=== PATIENT | female | born 1965 | race Caucasian/White ===

== ENCOUNTER 2016-06-13 14:37 | Emergency (ER) | payer BC, OTHER ==
[~2016-06-13] VITALS: Ht 162.6 cm; Wt 49.0 kg
[2016-06-13] MEDS ORDERED: ONDANSETRON HCL/PF 4 MG/2 ML VIAL ONE (14:54)
[2016-06-13] MEDS ORDERED: MORPHINE SULFATE INJ 4 MG/ML DISP.SYRIN ONE (14:54)
[2016-06-13] MEDS ORDERED: ONDANSETRON HCL/PF 4 MG/2 ML VIAL IVP ONE (15:00)
[2016-06-13] MEDS ORDERED: MORPHINE SULFATE INJ 4 MG/ML DISP.SYRIN IV ONE (15:00)
[2016-06-13 15:11] LABS: BASOPHILS # (AUTO) 0.1 /CMM (0.0-0.2); BASOPHILS % (AUTO) 1.5 % (0.0-2.0); EOSINOPHILS # (AUTO) 0.1 /CMM (0.0-0.7); EOSINOPHILS % (AUTO) 1.2 % (0.0-6.0); HEMATOCRIT 39 % (33-45); HEMOGLOBIN 13.1 g/dL (11.5-14.8); LYMPHOCYTES # (AUTO) 2.4 /CMM (0.8-4.8); LYMPHOCYTES % (AUTO) 51.9 % (20.0-44.0); MEAN CORPUSCULAR HEMOGLOBIN 32 PG (26.0-33.0); MEAN CORPUSCULAR HGB CONC 34 g/dl (31.0-36.0); MEAN CORPUSCULAR VOLUME 96 fL (82-100); MONOCYTES # (AUTO) 0.4 /CMM (0.1-1.30); MONOCYTES % (AUTO) 8.4 % (2.0-12.0); NEUTROPHILS # (AUTO) 1.7 /CMM (1.8-8.9); PLATELET COUNT (AUTO) 336 /CMM (150-450); RDW COEFFICIENT OF VARIATION 11.9 (11.5-15.0); RED BLOOD CELL COUNT(AUTO) 4.07 MIL/uL (4.0-5.2); WHITE BLOOD COUNT (AUTO) 4.7 K/uL (4.3-11.0)
[2016-06-13 15:21] LABS: CALCIUM, SERUM 9.1 mg/dL (8.5-10.1); CREATININE 0.7 mg/dL (0.6-1.3); POTASSIUM 4.6 mmol/L (3.5-5.1)
[2016-06-13 15:23] LABS: INR 0.94 (0.87-1.13); PROTHROMBIN TIME 9.8 SECS (9.5-12.7)
--- NOTE | 2016-06-13 15:27 | NUR ---
PT REC'D TO ER C/O ETOH ABUSE DRANK ONE BOTTLE OF WINE TODAY DEPRESSION VSS IV STARTED 20G RT FA LABS DRAWN SENT TO LAB UNABLE TO VOID AT THIS TIMEAWAITING EVALUATION BY ER PROVIDER.
[2016-06-13 15:28] LABS: ALBUMIN 3.9 g/dL (3.4-5.0); BILIRUBIN,DIRECT 0.1 mg/dL (0.0-0.2); BILIRUBIN,TOTAL 0.2 mg/dL (0.2-1.0); TOTAL PROTEIN, SERUM 7.4 g/dL (6.4-8.2)
--- NOTE | 2016-06-13 15:28 | NUR ---
MEDS GIVEN PER MD ORDER
[2016-06-13] MEDS ORDERED: KETOROLAC TROMETHAMINE INJ 30 MG/ML VIAL IV ONE ×2 (15:30→16:00)
[2016-06-13] MEDS ORDERED: MORPHINE SULFATE INJ 2 MG/ML DISP.SYRIN IV ONE (15:30)
[2016-06-13] MEDS ORDERED: KETOROLAC TROMETHAMINE INJ 30 MG/ML VIAL ONE (15:33)
[2016-06-13 17:07] VITALS: BP 112/80
--- NOTE | 2016-06-13 17:08 | NUR ---
Patient discharged to home in stable condition. Written and verbal after care instructions given. Patient verbalizes understanding of instruction.IV removed. Catheter intact and site benign. Pressure and 4x4 applied to site. No bleeding noted.
== END 2016-06-13 17:09 | disposition home or self-care (01) ==
LOC: ER 14:41
DX: K29.20 Alcoholic gastritis without bleeding (principal); K70.10 Alcoholic hepatitis without ascites; F10.129 Alcohol abuse with intoxication, unspecified
CPT/HCPCS: 36415; 80048; 80076; 83690; 85025; 85610; 96374; 96375; 99284; A4606; J1885; J2270; J2405; Z7610

== ENCOUNTER → 2017-12-05 | Emergency (ER) | payer BC, OTHER ==
[~2017-12-05] VITALS: Ht 162.6 cm; Wt 49.0 kg
[~2017-12-05] MED LIST: LORAZEPAM 1 MG TABLET ONE; LORAZEPAM 1 MG TABLET PO ONE
--- NOTE | 2017-12-05 11:52 | NUR ---
PT REC['D TOER VIA EMS . PT STATED TO EMS SHE NEEDS A BOYFRIEND TOOOK 14 XANAX WITH BOTTLE BROTHER AND DOG . PT STATED WANTEDF TO SLEEP NOT HURT HERSELD . ABLE TO AMB GAVE A UA SENT TO LAB AWAITING EVALUATION BY ER PROVIDER.
--- NOTE | 2017-12-05 12:46 | NUR ---
ATIVAN GIVEN TO PT PER MD ORDER
--- NOTE | 2017-12-05 13:01 | NUR ---
PT ROMING SOUNDLY RESP EVEN UNLABORED
--- NOTE | 2017-12-05 13:22 | NUR ---
PT Patient eloped from facility. ER MD notified.
[2017-12-05 13:23] VITALS: BP 133/69
== END | disposition home or self-care (01) ==
LOC: ER 11:22
DX: F10.129 Alcohol abuse with intoxication, unspecified (principal); Y90.9 Presence of alcohol in blood, level not specified; Z60.2 Problems related to living alone
CPT/HCPCS: 99283; A4606; Z7610

== ENCOUNTER 2017-12-29 14:16 | Emergency (ER) | payer OTHER ==
[~2017-12-29] VITALS: Ht 162.6 cm; Wt 49.9 kg
--- NOTE | 2017-12-29 14:29 | NUR ---
PT PRESENTS TO ED C/O ANXIETY AND REQUESTING FOR ATIVAN. PT ADMITS TO DRINKING ALCOHOL, FRIEND IS CONCERN ABOUT HER AND WANTS TO GO DETOX. PT APPEARS ANXIOUS. DENIES SI/HI. AWAITING MD LOPEZ.
--- NOTE | 2017-12-29 15:03 | NUR ---
DR KEEN AT BEDSIDE FOR EVAL.
--- NOTE | 2017-12-29 15:15 | NUR ---
CLINICAL ASSOC KIRAN AT BEDSIDE TALKING TO PT.
[2017-12-29] MEDS ORDERED: ALPRAZOLAM 0.25 MG TABLET ONE (15:17)
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
[2017-12-29] MEDS ORDERED: ALPRAZOLAM 0.25 MG TABLET PO ONE (15:30)
[2017-12-29 15:45] VITALS: BP 117/90
== END 2017-12-29 15:45 | disposition home or self-care (01) ==
LOC: ER 14:17
DX: F41.9 Anxiety disorder, unspecified (principal); F10.20 Alcohol dependence, uncomplicated; I10 Essential (primary) hypertension; Y90.9 Presence of alcohol in blood, level not specified; Z60.2 Problems related to living alone
CPT/HCPCS: 99284; A4606; Z7610

== ENCOUNTER 2018-02-07 12:13 | Emergency (ER) | payer OTHER ==
[~2018-02-07] VITALS: Ht 162.6 cm; Wt 49.9 kg
--- NOTE | 2018-02-07 12:34 | NUR ---
52 Y/O FEMALE PLACED IN BED 13 C/O ANXIETY
[2018-02-07 13:20] VITALS: BP 111/82
== END 2018-02-07 13:22 | disposition home or self-care (01) ==
LOC: ER 12:14
DX: F10.239 Alcohol dependence with withdrawal, unspecified (principal); I10 Essential (primary) hypertension; F41.9 Anxiety disorder, unspecified; Y90.9 Presence of alcohol in blood, level not specified; Z60.2 Problems related to living alone
CPT/HCPCS: A4606; Z7610

== ENCOUNTER 2018-11-17 08:24 | Emergency (ER) | payer MEDICAID, OTHER ==
[~2018-11-17] VITALS: Ht 160 cm; Wt 51.3 kg
[2018-11-17 08:24] VITALS: BP 163/106
--- NOTE | 2018-11-17 08:30 | NUR ---
PER PATIENT, LIVES IN A HOTEL, ON HER WAY TO ALCOHOL REHAB. DENIES BEING ON HER WAY TO ALCOHOL REHAB. AND MENTIONED SHE HAS AN APARTMENT.
== END 2018-11-17 09:07 | disposition home or self-care (01) ==
LOC: ER 08:26
DX: B86 Scabies (principal); I10 Essential (primary) hypertension; F10.10 Alcohol abuse, uncomplicated; F41.9 Anxiety disorder, unspecified; Y90.9 Presence of alcohol in blood, level not specified; Z60.2 Problems related to living alone

== ENCOUNTER 2019-12-08 07:12 | Emergency (ER) | payer MEDICAID ==
[~2019-12-08] VITALS: Ht 160 cm; Wt 52.2 kg
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
[2019-12-08] MEDS ORDERED: LORAZEPAM 1 MG TABLET ONE (07:28)
[2019-12-08] MEDS: LORAZEPAM 1 MG TABLET PO ONE (07:30)
--- NOTE | 2019-12-08 07:30 | NUR ---
PT MEDICATED ORDERED
--- NOTE | 2019-12-08 07:55 | NUR ---
Patient discharged to home in stable condition. Written and verbal after care instructions given. Patient verbalizes understanding of instruction.
[2019-12-08 07:56] VITALS: BP 116/71
== END 2019-12-08 07:56 | disposition home or self-care (01) ==
LOC: ER 07:15
DX: F41.9 Anxiety disorder, unspecified (principal); I10 Essential (primary) hypertension; Z60.2 Problems related to living alone

== ENCOUNTER 2020-01-04 17:00 | Observation (INO) | payer MEDICAID ==
[~2020-01-04] VITALS: Ht 162.6 cm; Wt 55.3 kg
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
--- NOTE | 2020-01-04 17:11 | NUR ---
URINE SAMPLE COLLECTED AND SENT TO LAB
--- NOTE | 2020-01-04 17:33 | NUR ---
CALLED [facility] [phone] THEY WILL SEND A UNIT PER CHIEF LIFESTYLE OFFICER 493
[2020-01-04 17:55] LABS: BASOPHILS % (AUTO) 1.1 % (0.0-2.0); EOSINOPHILS % (AUTO) 1.8 % (0.0-6.0); HEMATOCRIT 42 % (33-45); HEMOGLOBIN 13.9 g/dL (11.5-14.8); LYMPHOCYTES # (AUTO) 1.4 /CMM (0.8-4.8); LYMPHOCYTES % (AUTO) 43.3 % (20.0-44.0); MEAN CORPUSCULAR HGB CONC 33 g/dl (31.0-36.0); MEAN CORPUSCULAR VOLUME 98 fL (82-100); MONOCYTES # (AUTO) 0.2 /CMM (0.1-1.30); MONOCYTES % (AUTO) 6.3 % (2.0-12.0); NEUTROPHILS # (AUTO) 1.6 /CMM (1.8-8.9); NEUTROPHILS % (AUTO) 47.5 % (43.0-81.0); PLATELET COUNT (AUTO) 110 /CMM (150-450); RED BLOOD CELL COUNT(AUTO) 4.28 MIL/uL (4.0-5.2); WHITE BLOOD COUNT (AUTO) 3.3 K/uL (4.3-11.0)
[2020-01-04 18:01] LABS: BILIRUBIN,URINE NEGATIVE (NEGATIVE); BLOOD, URINE NEGATIVE Ery/uL (NEGATIVE); COLOR,URINE YELLOW (YELLOW); LEUKOCYTE ESTERASE ,URINE NEGATIVE (NEGATIVE); NITRITE, URINE NEGATIVE (NEGATIVE); PH,URINE 7.5 (5.0-8.0); PROTEIN,URINE NEGATIVE (NEGATIVE); UGLUCOSE NEGATIVE (NEGATIVE); UROBILINOGEN,URINE 0.2 EU/dL (0.2)
[2020-01-04 18:07] LABS: CARBON DIOXIDE 29 mmol/L (21-32); CHLORIDE 103 mmol/L (98-107); CREATININE 0.7 mg/dL (0.6-1.3); GLUCOSE 80 mg/dL (74-106); POTASSIUM 3.8 mmol/L (3.5-5.1); SODIUM SERUM 143 mmol/L (136-145); UREA NITROGEN, BLOOD 12 mg/dL (7-18)
[2020-01-04 18:15] LABS: ALANINE AMINOTRANSFERASE 159 U/L (12-78); ALCOHOL, BLOOD 373 mg/dL (0-0); ALKALINE PHOSPHATASE 94 U/L (46-116); ASPARTATE AMINOTRANSFERASE 258 U/L (15-37); BILIRUBIN,DIRECT 0.1 mg/dL (0.0-0.2); BILIRUBIN,TOTAL 0.3 mg/dL (0.2-1.0); TOTAL PROTEIN, SERUM 7.7 g/dL (6.4-8.2)
[2020-01-04 18:17] LABS: ACETAMINOPHEN < 2 ug/ml (10-30)
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
--- NOTE | 2020-01-04 19:47 | NUR ---
PATIENT IS AMBULATORY WITH A STEADY GAIT. PATIENT STATES, "THE BILLBOARD INSTALLER ARE TAKING ME HOME, I NEED MY TACTICAL RESPONSE GROUP OFFICER'S LICENSE." PATIENT IS WALKING AROUND. PATIENT REDIRECTED BACK TO OWN BED. CONNECTED TO MONITOR AND BED CHANGED INTO CLEAN SHEETS.
--- NOTE | 2020-01-04 19:50 | NUR ---
[employer] OFFICERS AT BEDSIDE.
--- NOTE | 2020-01-04 21:37 | NUR ---
PATIENT IS SCREAMING. YELLLING EXPLETIVES, PATIENT IS UNABLE TO BE REDIRECTED. MD NOTIFIED.
[2020-01-04] MEDS ORDERED: OLANZAPINE 10 MG VIAL IM ONE ×2 (21:46→22:00)
--- NOTE | 2020-01-04 21:56 | NUR ---
PT AMBULATORY TO RESTROOM WITH STEADY GAIT
[2020-01-04] MEDS ORDERED: ACETAMINOPHEN 325 MG TABLET PO PRN (23:00)
[2020-01-04] MEDS ORDERED: LORAZEPAM INJ 2 MG/ML VIAL IV PRN ×2 (23:00)
[2020-01-04] MEDS ORDERED: ONDANSETRON HCL/PF 4 MG/2 ML VIAL IV PRN (23:00)
[2020-01-04] MEDS ORDERED: MAG HYDROX/AL HYDROX/SIMETH 30 ML UDC PO PRN (23:00)
[2020-01-04] MEDS ORDERED: IV 1/2NS 1000 ML 1,000 ML IV PRN (23:00)
--- NOTE | 2020-01-04 23:49 | NUR ---
PATIENT IS SLEEPING. BREATHING EVENLY AND UNLABORED ON ROOM AIR. EASILY AROUSABLE THROUGH VERBAL AND TACTILE STIMULI. CONNECTED TO THE MONITOR. SITTER AT BEDSIDE.
--- NOTE | 2020-01-05 02:16 | NUR ---
PATIENT IS SLEEPING. EASILY AROUSABLE THROUGH VERBAL AND TACTILE STIMULI. PATIENT IS BREATHING EVENLY AND UNLABORED ON ROOM AIR. CONNECTED TO THE MONITOR. SITTER AT BEDSIDE. SIDE RAILS ARE UP FOR SAFETY. BED AT THE LOWEST POSITION.
--- NOTE | 2020-01-05 04:51 | NUR ---
PATIENT IS AMBULATORY WITH A STEADY GAIT.
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
--- NOTE | 2020-01-05 05:04 | NUR ---
PATIENT IS AAOX4. AMBULATORY WITH A STEADY GAIT. DR. ADASM IS NOTIFIED. DISCHARGE INSTRUCTIONS ARE PROVIDED TO THAT PATIENT.
--- NOTE | 2020-01-05 05:05 | NUR ---
Patient discharged to home in stable condition. Written and verbal after care instructions given. Patient verbalizes understanding of instruction.
[2020-01-05 05:35] VITALS: BP 133/70
[2020-01-05] MEDS ORDERED: PANTOPRAZOLE 40 MG TABLET.DR PO SCH (07:30)
[2020-01-05] MEDS ORDERED: FOLIC ACID 1 MG TABLET PO SCH (09:00)
[2020-01-05] MEDS ORDERED: THIAMINE HCL 100 MG TABLET PO SCH (09:00)
[2020-01-05] MEDS ORDERED: MULTIVITAMINS,THERAGRAN 1 UDTAB TABLET PO SCH (09:00)
== END 2020-01-05 05:05 | disposition home or self-care (01) ==
LOC: ER 17:02 → TRANSITION 21:44
PROVIDERS: ADMIT Internal Medicine; ATTEND Internal Medicine
DX: F10.229 Alcohol dependence with intoxication, unspecified (principal); Y90.8 Blood alcohol level of 240 mg/100 ml or more; I10 Essential (primary) hypertension; R10.9 Unspecified abdominal pain; D69.59 Other secondary thrombocytopenia; Z91.410 Personal history of adult physical and sexual abuse
CPT/HCPCS: 36415; 80048; 80076; 80299; 80307; 80320; 81001; 83690; 84703; 85025; G0378 ×7; J2060 ×2; J2405; J3490 ×3; 81000-TC; G0480

== ENCOUNTER 2020-11-29 12:38 | Emergency (ER) | payer MEDICAID ==
[~2020-11-29] VITALS: Ht 162.6 cm; Wt 51.7 kg
--- NOTE | 2020-11-29 12:40 | NUR ---
To ER bed 12, BIBRA 839 for ETOH and right ankle pain and swelling, aaox3, breathing even and non labored, attached to monitor, changed to a gown
--- NOTE | 2020-11-29 14:50 | NUR ---
PT'S COUSIN CALLED AND LEFT HER NUMBER. ABLE TO REACH HER AT [phone] VIVEK.
--- NOTE | 2020-11-29 16:20 | NUR ---
PT ASLEEP, BREATHING EVEN AND NON LABORED
--- NOTE | 2020-11-29 20:37 | NUR ---
Patient discharged to home in stable condition. Written and verbal after care instructions given. Patient verbalizes understanding of instruction. Pt ambulated out of ED. VSS. Steady gait. Waited for uber in the waiting room.
[2020-11-29 20:38] VITALS: BP 131/75
== END 2020-11-29 20:38 | disposition home or self-care (01) ==
LOC: ER 13:20
DX: S82.831A Other fracture of upper and lower end of right fibula, initial encounter for closed fracture (principal); F10.129 Alcohol abuse with intoxication, unspecified; Y90.9 Presence of alcohol in blood, level not specified; X58.XXXA Exposure to other specified factors, initial encounter; Y93.89 Activity, other specified; Y92.89 Other specified places as the place of occurrence of the external cause; Y99.8 Other external cause status
CPT/HCPCS: 73630-TC

== ENCOUNTER 2020-12-06 17:42 | Emergency (ER) | payer MEDICAID ==
[~2020-12-06] VITALS: Ht 162.6 cm; Wt 59.4 kg
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
--- NOTE | 2020-12-06 18:26 | NUR ---
THE PATIENT IS SLEEPING. RESPONSIVE TO VERBAL STIMULI. WILL CONTINUE TO MONITOR THE PATIENT.
[2020-12-06 20:11] LABS: CALCIUM, SERUM 8.4 mg/dL (8.5-10.1); CARBON DIOXIDE 29 mmol/L (21-32); CHLORIDE 104 mmol/L (98-107); CREATININE 0.6 mg/dL (0.6-1.3); GLUCOSE 94 mg/dL (74-106); POTASSIUM 4.1 mmol/L (3.5-5.1); SODIUM SERUM 142 mmol/L (136-145); UREA NITROGEN, BLOOD 13 mg/dL (7-18)
[2020-12-06 20:16] LABS: ALANINE AMINOTRANSFERASE 214 U/L (12-78); ALKALINE PHOSPHATASE 121 U/L (46-116); ASPARTATE AMINOTRANSFERASE 444 U/L (15-37); BILIRUBIN,DIRECT 0.2 mg/dL (0.0-0.2); BILIRUBIN,TOTAL 0.3 mg/dL (0.2-1.0); TOTAL PROTEIN, SERUM 7.9 g/dL (6.4-8.2)
[2020-12-06 20:17] LABS: BASOPHILS # (AUTO) 0.1 K/uL (0.0-0.2); BASOPHILS % (AUTO) 2.4 % (0.0-2.0); EOSINOPHILS % (AUTO) 1.5 % (0.0-6.0); HEMATOCRIT 42 % (33-45); HEMOGLOBIN 14.1 g/dL (11.5-14.8); LYMPHOCYTES % (AUTO) 34.3 % (20.0-44.0); MEAN CORPUSCULAR HGB CONC 34 g/dl (31.0-36.0); MEAN CORPUSCULAR VOLUME 99 fL (82-100); MONOCYTES # (AUTO) 0.3 K/uL (0.1-1.30); MONOCYTES % (AUTO) 8.3 % (2.0-12.0); NEUTROPHILS # (AUTO) 1.6 K/uL (1.8-8.9); NEUTROPHILS % (AUTO) 53.5 % (43.0-81.0); PLATELET COUNT (AUTO) 56 K/uL (150-450); RED BLOOD CELL COUNT(AUTO) 4.19 MIL/uL (4.0-5.2)
[2020-12-06] MEDS ORDERED: IOHEXOL-300 100 ML VIAL IV ONE (20:24)
[2020-12-06] MEDS ORDERED: IV NS 0.9% 250 ML IV ONE (20:24)
--- NOTE | 2020-12-06 20:53 | NUR ---
patient back from CT
[2020-12-06 21:23] LABS: BASOPHILS % (MANUAL) 1 % (0.0-2.0); EOSINOPHILS % (MANUAL) 2 % (0-4); LYMPHOCYTES % (MANUAL) 36 % (16-48); MONOCYTES % (MANUAL) 8 % (0-11.0); NEUTROPHILS % (MANUAL) 53 (42-76)
[2020-12-06 21:28] LABS: ALCOHOL, BLOOD 412 mg/dL (0-0)
--- NOTE | 2020-12-07 | NUR ---
PT IN BED ASLEEP DENIES ANY PAIN OR DISCOMFORT.
--- NOTE | 2020-12-07 00:15 | NUR ---
Patient pulled out IV, declines to have a new IV inserted. notified and made aware.
--- NOTE | 2020-12-07 03:00 | NUR ---
PT ASLEEP AT THIS TIME ABLE TO GO WALK TO THE RESTROOM, DENIES ANY PAIN OR DISCOMFORT AT THIS TIME.
[2020-12-07] MEDS ORDERED: ACETAMINOPHEN 650 MG/20.3 ML UDC ONE (03:29)
[2020-12-07] MEDS ORDERED: ACETAMINOPHEN 650 MG/20.3 ML UDC PO ONE (03:30)
--- NOTE | 2020-12-07 07:03 | NUR ---
MD at bedside speaking to patient.
[2020-12-07] MEDS ORDERED: LORAZEPAM 1 MG TABLET ONE ×2 (07:07→10:07)
[2020-12-07] MEDS ORDERED: LORAZEPAM 1 MG TABLET PO ONE ×2 (07:30→10:30)
--- NOTE | 2020-12-07 07:47 | NUR ---
ASSESSED PT ON BED ASLEEP EASILY AROUSABLE, NOT IN RESPIRATORY DISTRESS, V/S STABLE, KEPT RESTED AND COMFORTABLE. WILL CONTINUE TO MONITOR.
--- NOTE | 2020-12-07 10:00 | NUR ---
PT ABLE TO AMBULATE STRAIGHT WITHOUT ASSISTANCE. DR. SABA MOYER.
--- NOTE | 2020-12-07 10:05 | NUR ---
TAXI VOUCHER PROVIDED BY [facility].
--- NOTE | 2020-12-07 10:09 | NUR ---
Patient discharged to home in stable condition. Written and verbal after care instructions given. Patient verbalizes understanding of instruction.
[2020-12-07 10:10] VITALS: BP 135/74
== END 2020-12-07 10:11 | disposition home or self-care (01) ==
LOC: ER 17:50
DX: S00.83XA Contusion of other part of head, initial encounter (principal); S30.1XXA Contusion of abdominal wall, initial encounter; F10.129 Alcohol abuse with intoxication, unspecified; D69.6 Thrombocytopenia, unspecified; K70.10 Alcoholic hepatitis without ascites; R51.9 Headache, unspecified; I10 Essential (primary) hypertension; F41.9 Anxiety disorder, unspecified; Y90.8 Blood alcohol level of 240 mg/100 ml or more; Z60.2 Problems related to living alone; X58.XXXA Exposure to other specified factors, initial encounter; Y93.89 Activity, other specified; Y92.89 Other specified places as the place of occurrence of the external cause; Y99.8 Other external cause status
CPT/HCPCS: 36415; 70450; 70486; 71045; 72125; 73610; 74177; 76705; 80048; 80076; 80320; 83880; 84484; 84702; 85007; 85025; 93005; 99285; J7050; Q9967; G0480

== ENCOUNTER 2021-01-23 22:45 | Emergency (ER) | payer MEDICAID, OTHER ==
[~2021-01-23] VITALS: Ht 162.6 cm; Wt 52.2 kg
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
--- NOTE | 2021-01-23 23:41 | NUR ---
BROUGHT FOR XRAY
--- NOTE | 2021-01-23 23:56 | NUR ---
PATIENT RETURNED FROM CT
[2021-01-24] MEDS ORDERED: HYDR-3972 PO (01:06)
--- NOTE | 2021-01-24 01:30 | NUR ---
Patient discharged to home in stable condition. Written and verbal after care instructions given. Patient verbalizes understanding of instruction.
[2021-01-24 01:39] VITALS: BP 129/80
== END 2021-01-24 01:40 | disposition home or self-care (01) ==
LOC: ER 22:47
DX: S62.367A Nondisplaced fracture of neck of fifth metacarpal bone, left hand, initial encounter for closed fracture (principal); S05.12XA Contusion of eyeball and orbital tissues, left eye, initial encounter; F10.10 Alcohol abuse, uncomplicated; R51.9 Headache, unspecified; I10 Essential (primary) hypertension; F41.9 Anxiety disorder, unspecified; Y90.9 Presence of alcohol in blood, level not specified; Z60.2 Problems related to living alone; V49.59XA Passenger injured in collision with other motor vehicles in traffic accident, initial encounter; Y93.89 Activity, other specified; Y92.488 Other paved roadways as the place of occurrence of the external cause; Y99.8 Other external cause status
CPT/HCPCS: 70450-TC; 70486-TC; 73130-TC

== ENCOUNTER 2022-04-10 14:38 | Emergency (ER) | payer MEDICAID, OTHER ==
[~2022-04-10] VITALS: Ht 162.6 cm; Wt 54.4 kg
[~2022-04-10 14:38] MED LIST changes: +HYDR-3972 PO; -LORAZEPAM 1 MG TABLET ONE; -LORAZEPAM 1 MG TABLET PO ONE
--- NOTE | 2022-04-10 14:45 | NUR ---
glory RECEIVED PT 57yrs female came by pramdic c/o pain on lt foot slapit and fell down HX ETOH for 2 week
--- NOTE | 2022-04-10 14:55 | NUR ---
SEEN DR. DONALD
[2022-04-10] MEDS ORDERED: ONDANSETRON HCL/PF 4 MG/2 ML VIAL ONE (14:58)
[2022-04-10] MEDS ORDERED: IV NS 0.9% 1,000 ML BAG IV ONE (15:00)
[2022-04-10] MEDS ORDERED: ONDANSETRON HCL/PF 4 MG/2 ML VIAL IVP ONE (15:00)
--- NOTE | 2022-04-10 15:00 | NUR ---
INSERTED ANGO CATHETER G 20 ON LA AC BLOOD DROW and sent to lab
[2022-04-10 15:31] LABS: BASOPHILS % (AUTO) 0.7 % (0.0-2.0); EOSINOPHILS % (AUTO) 0.1 % (0.0-6.0); HEMATOCRIT 43 % (33-45); LYMPHOCYTES # (AUTO) 0.9 K/uL (0.8-4.8); MEAN CORPUSCULAR HGB CONC 33 g/dl (31.0-36.0); MEAN CORPUSCULAR VOLUME 92 fL (82-100); MONOCYTES # (AUTO) 0.2 K/uL (0.1-1.30); MONOCYTES % (AUTO) 3.9 % (2.0-12.0); NEUTROPHILS # (AUTO) 4.6 K/uL (1.8-8.9); NEUTROPHILS % (AUTO) 79.3 % (43.0-81.0); PLATELET COUNT (AUTO) 78 K/uL (150-450); RED BLOOD CELL COUNT(AUTO) 4.64 MIL/uL (4.0-5.2); WHITE BLOOD COUNT (AUTO) 5.8 K/uL (4.3-11.0)
--- NOTE | 2022-04-10 15:36 | NUR ---
MARY TOBIN AT BEDSIDE.
--- NOTE | 2022-04-10 15:40 | NUR ---
IV LINE ACCIDENTALY REMOVED BY PATIENT. APPLIED PRESSURE TO STOP THE BLEEDING. MADE AWARE
[2022-04-10 15:41] LABS: MAGNESIUM 2.1 mg/dL (1.8-2.4)
[2022-04-10 15:42] LABS: CREATININE 0.7 mg/dL (0.6-1.3); POTASSIUM 4.3 mmol/L (3.5-5.1)
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
[2022-04-10 16:30] LABS: BILIRUBIN,DIRECT 0.2 mg/dL (0.0-0.2); BILIRUBIN,TOTAL 0.6 mg/dL (0.2-1.0); TOTAL PROTEIN, SERUM 8.1 g/dL (6.4-8.2)
--- NOTE | 2022-04-10 17:10 | NUR ---
UA SENT TO LAB
[2022-04-10 17:41] LABS: BILIRUBIN,URINE NEGATIVE (NEGATIVE); COLOR,URINE YELLOW (YELLOW); LEUKOCYTE ESTERASE ,URINE NEGATIVE (NEGATIVE); NITRITE, URINE NEGATIVE (NEGATIVE); PROTEIN,URINE NEGATIVE (NEGATIVE); UGLUCOSE NEGATIVE (NEGATIVE); UROBILINOGEN,URINE 0.2 EU/dL (0.2)
--- NOTE | 2022-04-10 18:00 | NUR ---
CALLED DOUBLE SPINDLE SHAPER OPERATOR SANTOS FOR EVAL.
[2022-04-10 18:36] LABS: BACTERIA,URINE RARE /HPF (None Seen); RBC,URINE 21-50 /HPF (0-2); SQUAMOUS EPITHELIAL CELL,UR 0-2 /HPF (None Seen); WBC,URINE 0-2 /HPF (0-3)
[2022-04-10 18:54] VITALS: BP 131/81
--- NOTE | 2022-04-10 18:54 | NUR ---
Patient discharged to home in stable condition. Written and verbal after care instructions given. Patient verbalizes understanding of instruction.
[2022-04-10 22:08] LABS: BAND % (MANUAL) 3 % (0.0-5.0); LYMPHOCYTES % (MANUAL) 17 % (16-48); MONOCYTES % (MANUAL) 2 % (0-11.0); NEUTROPHILS % (MANUAL) 78 (42-76)
== END 2022-04-10 18:55 | disposition home or self-care (01) ==
LOC: ER 14:40
DX: S93.491A Sprain of other ligament of right ankle, initial encounter (principal); F10.129 Alcohol abuse with intoxication, unspecified; K70.10 Alcoholic hepatitis without ascites; D69.6 Thrombocytopenia, unspecified; I10 Essential (primary) hypertension; F41.9 Anxiety disorder, unspecified; Z60.2 Problems related to living alone; Z79.899 Other long term (current) drug therapy; X58.XXXA Exposure to other specified factors, initial encounter; Y93.89 Activity, other specified; Y92.89 Other specified places as the place of occurrence of the external cause; Y99.8 Other external cause status; Y90.8 Blood alcohol level of 240 mg/100 ml or more
CPT/HCPCS: 99285; 96374; 96361; 73610; 73590; 85025; 80048; 83690; 80076; 83735; 85007; 81001; 36415; 80320 ×2; 80307; J2405; J7030; G0480